=== PATIENT | female | born 1985 | race Two or more races ===

== ENCOUNTER 2022-11-14 08:41 | Outpatient (CLI) | payer MEDICAID | END 2022-11-14 23:59 | disposition home or self-care (01) | LOC: RAD 08:41 | PROVIDERS: ATTEND Family Medicine | DX: T83.31XA Breakdown (mechanical) of intrauterine contraceptive device, initial encounter (principal); Y84.8 Other medical procedures as the cause of abnormal reaction of the patient, or of later complication, without mention of misadventure at the time of the procedure; Y92.89 Other specified places as the place of occurrence of the external cause | CPT/HCPCS: 76830; 76856; 93976 ==